=== PATIENT | male | born 1985 | race Caucasian/White ===

== ENCOUNTER 2020-05-03 09:39 | Outpatient (CLI) | payer BC, SELFPAY ==
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
== END 2020-05-03 09:59 ==
PROVIDERS: PCP Nurse Practitioner Family; Referring Provider Nurse Practitioner Family; Visit Provider Student in an Organized Health Care Education/Training Program
DX: M43.8X2 Other specified deforming dorsopathies, cervical region (principal); S12.490S Other displaced fracture of fifth cervical vertebra, sequela; M47.812 Spondylosis without myelopathy or radiculopathy, cervical region; M48.02 Spinal stenosis, cervical region
CPT/HCPCS: 72050

== ENCOUNTER 2020-09-23 13:47 | Outpatient (CLI) | payer BC, SELFPAY ==
--- NOTE | 2020-09-23 13:00 | DI.RAD_ITS ---
Exam(s) XR CLAVICLE RT EXAM: XR CLAVICLE RT CLINICAL HISTORY: eval R clavicle fracture S42.001A. TECHNIQUE: 2D digital imaging was performed. COMPARISON: No exams were available for comparison FINDINGS: There is a displaced comminuted fracture of the midshaft of the right clavicle. AC joint is not dist racted. IMPRESSION: DATA REPOSITORY: RADIATION DOSE DELIVERED:
== END 2020-09-23 14:07 ==
PROVIDERS: PCP Nurse Practitioner Family; Visit Provider Student in an Organized Health Care Education/Training Program
DX: S42.001A Fracture of unspecified part of right clavicle, initial encounter for closed fracture (principal); X58.XXXA Exposure to other specified factors, initial encounter
CPT/HCPCS: 73000

== ENCOUNTER 2020-09-27 03:10 | Outpatient (CLI) | payer BC, SELFPAY ==
[2020-09-27 11:43] LABS: Source Nasal/Nares
[2020-09-27 16:46] LABS: COVID-19 PCR Negative (Negative)
== END 2020-09-27 03:11 | disposition home or self-care (01) ==
LOC: LBO 03:11
PROVIDERS: PCP Nurse Practitioner Family; Visit Provider Student in an Organized Health Care Education/Training Program
DX: Z20.822 Contact with and (suspected) exposure to COVID-19 (principal); Z01.818 Encounter for other preprocedural examination
CPT/HCPCS: 87635

== ENCOUNTER 2020-09-28 08:08 | Day surgery (SDC) | payer BC, SELFPAY ==
[2020-09-28] VITALS (9 sets, daily range): BP systolic 101–134; BP diastolic 53–79; PULSE 52–68; RESP 12–17; TEMP 36.2–36.7; O2SAT 95–98; BMI 24.5
--- NOTE | 2020-09-28 07:36 | PDOC.DSDIS_ITS ---
Discharge Plan Disposition Patient Disposition: HOME Condition: Good Discharge Details Reason For Visit: Right clavicle ORIF Attending Provider: Wilman Park Primary Care Provider: Ghada Man Home Meds and New Rx's Prescriptions: New ibuprofen 600 mg tablet 600 mg PO TID Qty: 90 RF: 0 acetaminophen [Tylenol Extra Strength] 500 mg tablet 500 mg PO Q6H PRNQty: 90 RF: 0 hydrocodone-acetaminophen 5-325 mg tablet 1 tab PO Q6H PRNQty: 5 RF: 0 Continued lorazepam 0.5 mg Tablet 0.5 mg PO PRN PRNRF: 0 loratadine 10 mg Tablet 10 mg PO DAILY PRNRF: 0 Discharge Instructions Additional Instructions: Fracture Fixation Discharge Instructions Activity: You should use the sling as much as possible for the first few days. You may use your hand, finger and bend at the elbow as much as tolerated but avoid trying to lift away from your body or above your shoulders. Avoid doing too much too soon. You may perform light activities with the sling in place. Dressing: dressing will be removed at first postoperative visit. If it falls off before then it is ok. Keep clean and dry. Medications: - You should take Tylenol and Ibuprofen for baseline pain control. - You have been prescribed a stronger pain medication, hydrocodone, for breakthrough pain. - You may apply ice over the wrist, just double bag so it doesn't get wet. Follow-up: 10-14 days Referrals: Wilman Park MD [ [facility] STAFF PHYSICIAN] - Equipment/Supplies: Sling Activity:: Activity as Tolerated Remove Dressings/Wound Care:: Do Not Remove Shower/Bathe:: 72 hours Discharge Orders Discharge Orders: Discharge Order (Routine); Ordered 09/28/20 Ordered By: Delmi Garcia DS: Diagnosis Discharge Diagnosis (1) Right clavicle fracture: Status: Acute
[2020-09-28] MEDS: Lactated Ringers 1,000 ML 80 ML IV (08:40)
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
[2020-09-28] MEDS: ceFAZolin 2 GM/50 ML BAG IVPB (10:41)
[2020-09-28] MEDS: Bupivacaine 0.25% Pres-Free 10 ML VIAL (11:07)
--- NOTE | 2020-09-28 11:20 | W.ANESNERVE ---
Nerve Block Single Injection Procedure Date and Time Date Performed: 09/28/20 Procedure Start: 10:20 Location Where Procedure Performed Procedure Location: PACU Reason Performed: Postoperative Analgesia Requesting Provider: Wilman Park Timeout Performed Timeout Performed: Yes Monitoring Used ECG, Blood Pressure and SpO2 Sterility Sterility: Hand Hygiene, Surgical Cap, Surgical Mask, Sterile Gloves, Sterile Drape/Sheet (sterile ultrasound cover) and Chlorhexidine Sedation Given During Procedure Sedation Given (Indicate Dose Given): Versed IV Dose:: 2mg Patient Mental Status Patient Mental Status: Sedate with meaningful communication Nerve Block 1st Nerve Block: Laterality: Right Block Type: Superficial Cervical Plexus Needle / Catheter Used: 100mm SonoPlex II Local Anesthetic Bolus (Indicate Dose Given): Lidocaine used for local infiltration of skin (1.5 ml 2% from OR 1), Injected in 3-5ml increments after negative blood aspiration, Bupivacaine 0.25% Dose:: 5 ml and Exparel Dose:: 5 ml Additives (Indicate Dose Given): None Ultrasound: Sterile probe cover and gel used Ultrasound Image Saved?: Yes Nerve Stimulator: Not Used Paresthesia: None Post Procedure Pain score (0-10): 0 Procedure Tolerated: No Complications and Patient tolerated well Procedure Outcome: Successful Performed By: edel Other (not listed above): assist needle repositioned by edel holder
--- NOTE | 2020-09-28 12:15 | DI.RAD_ITS ---
Exam(s) XR CLAVICLE RT EXAM: XR CLAVICLE RT CLINICAL HISTORY: ORIF TECHNIQUE: 2D and realtime digital imaging was performed. COMPARISON: No exams were available for comparison FINDINGS: C-arm fluoroscopy was utilized by Dr. Park during open reduction and internal fixation of mid cla vicular fracture. Hard copy show plate and screw fixation in place. IMPRESSION: RADIATION DOSE DELIVERED: Kar=1.1 mGy Total DLP
[2020-09-28] MEDS: fentaNYL 100 MCG/2 ML VIAL IVP (13:15)
[2020-09-28] MEDS: Ondansetron 4 MG/2 ML VIAL IVP (14:26)
--- NOTE | 2020-09-28 14:26 | W.ANESPOSTOP ---
Postoperative Evaluation Date, Time and Location Date Performed: 09/28/20 Time Performed: 14:26 Patient Location: Day Surgery Unit Vital Signs Most Recent Imported Vital Signs: Most Recent Vital Signs Temp Pulse Resp BP Pulse Ox 36.2 C L 52 L 16 108/64 97 09/28/20 13:56 09/28/20 13:56 09/28/20 13:56 09/28/20 13:56 09/28/20 13:56 Pain Score Most Recent Pain Score: Most Recent Pain Score Pain Level 3 09/28/20 13:56 Assessment Mental Status: Awake (Alert & Oriented to Patient Baseline) Airway and Respiratory Function: Patent airway with normal (patient baseline) respiratory exam Cardiovascular Function: Hemodynamically Stable Hydration Status: Adequately Hydrated Nausea & Vomiting: Active Nausea or Vomiting Present Nausea and Vomiting Management: Nausea and vomiting active, being addressed with medication Pain: Pain is tolerable per patient Peripheral Nerve Block: Regional nerve block not resolved at time of post operative discharge
[2020-09-28] MEDS: Droperidol 5 MG/2 ML VIAL 0.625 MG IVP (15:16)
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
== END 2020-09-28 16:25 | disposition home or self-care (01) ==
LOC: SUR 08:09
PROVIDERS: PCP Nurse Practitioner Family; Visit Provider Student in an Organized Health Care Education/Training Program
PROC: (CPT 23515; principal; 2020-09-28 10:15)
DX: S42.021A Displaced fracture of shaft of right clavicle, initial encounter for closed fracture (principal); V19.3XXA Pedal cyclist (driver) (passenger) injured in unspecified nontraffic accident, initial encounter
CPT/HCPCS: 23515; 76000; 76942; 73000; J0690; J1790; J1885; J2250; J2405; J3010

== ENCOUNTER 2020-10-11 14:57 | Outpatient (CLI) | payer BC, SELFPAY ==
--- NOTE | 2020-10-11 13:30 | DI.RAD_ITS ---
Exam(s) XR CLAVICLE RT EXAM: XR CLAVICLE RT CLINICAL HISTORY: f/u ORIF R clavicle. TECHNIQUE: 2D digital imaging was performed. COMPARISON: CR XR CLAVICLE RT from 09/23/2020 FINDINGS: There has been interval placement of a dorsal fusion plate across the comminuted midshaft fracture si te in the right clavicle. Are satisfactory position alignment of the fracture fragments. No hardwar e loosening. No radiographic evidence of osteomyelitis. Ipsilateral AC joint appears unremarkable. IMPRESSION: DATA REPOSITORY: RADIATION DOSE DELIVERED:
== END 2020-10-11 14:58 | disposition home or self-care (01) ==
LOC: DIORS 14:57
PROVIDERS: PCP Nurse Practitioner Family; Referring Provider Nurse Practitioner Family; Visit Provider Student in an Organized Health Care Education/Training Program
DX: S42.021D Displaced fracture of shaft of right clavicle, subsequent encounter for fracture with routine healing (principal); X58.XXXD Exposure to other specified factors, subsequent encounter
CPT/HCPCS: 73000

== ENCOUNTER 2020-11-08 13:51 | Outpatient (CLI) | payer BC, SELFPAY ==
--- NOTE | 2020-11-08 08:00 | DI.RAD_ITS ---
Exam(s) XR CLAVICLE RT EXAM: XR CLAVICLE RT INDICATION: right clavicle fracture. COMPARISON: No exams were available for comparison TECHNIQUE: 2D digital imaging was performed. FINDINGS: A fixation plate is again noted along the clavicle for fracture fixation. There is continued healing . No change in alignment. DATA REPOSITORY: RADIATION DOSE DELIVERED:
== END 2020-11-08 13:52 | disposition home or self-care (01) ==
LOC: DIORS 13:51
PROVIDERS: PCP Nurse Practitioner Family; Referring Provider Nurse Practitioner Family; Visit Provider Physician Assistant
DX: S42.001D Fracture of unspecified part of right clavicle, subsequent encounter for fracture with routine healing (principal); X58.XXXD Exposure to other specified factors, subsequent encounter
CPT/HCPCS: 73000

== ENCOUNTER 2020-12-20 09:36 | Outpatient (CLI) | payer BC, SELFPAY ==
--- NOTE | 2020-12-20 08:00 | DI.RAD_ITS ---
Exam(s) XR CLAVICLE RT EXAM: XR CLAVICLE RT CLINICAL HISTORY: right clavicle fracture. TECHNIQUE: 2D digital imaging was performed. COMPARISON: CR XR CLAVICLE RT from 11/08/2020 FINDINGS: Again noted is a dorsal fixation plate across the mid shaft level clavicular fracture site which appe ars mostly healed. No hardware fracture. No loosening. No radiographic evidence of osteomyelitis. AC joint is not distracted. IMPRESSION: DATA REPOSITORY: RADIATION DOSE DELIVERED:
== END 2020-12-20 09:37 | disposition home or self-care (01) ==
LOC: DIORS 09:37
PROVIDERS: PCP Nurse Practitioner Family; Referring Provider Nurse Practitioner Family; Visit Provider Physician Assistant
DX: S42.021D Displaced fracture of shaft of right clavicle, subsequent encounter for fracture with routine healing (principal); X58.XXXD Exposure to other specified factors, subsequent encounter
CPT/HCPCS: 73000

== ENCOUNTER 2021-06-02 09:43 | Outpatient (CLI) | payer BC, SELFPAY ==
--- NOTE | 2021-06-02 08:30 | DI.RAD_ITS ---
Exam(s) XR CLAVICLE RT EXAM: XR CLAVICLE RT CLINICAL HISTORY: eval R clavicle ORIF TECHNIQUE: 2D digital imaging was performed. Two views. COMPARISON: CR XR CLAVICLE RT from 12/20/2020 FINDINGS: There has been no change in fracture or hardware alignment. Continued healing at clavicle fracture. No new abnormalities. DATA REPOSITORY: RADIATION DOSE DELIVERED:
--- NOTE | 2021-06-02 08:30 | DI.RAD_ITS ---
Exam(s) XR ACROMIO CLAVICULAR JOINTS EXAM: XR ACROMIO CLAVICULAR JOINTS INDICATION: eval R AC pain. COMPARISON: CR XR CLAVICLE RT from 12/20/2020 CR XR CLAVICLE RT from 06/02/2021 TECHNIQUE: 2D digital imaging was performed. Single AP view with weights. Both AC joints on the si ngle image. FINDINGS: A fixation plate is again noted through the right clavicle. There has been no change hardware alignm ent. No new lucencies are seen. There is no widening of the AC joints with weights. DATA REPOSITORY: RADIATION DOSE DELIVERED:
== END 2021-06-02 09:44 | disposition home or self-care (01) ==
LOC: DIORS 09:43
PROVIDERS: PCP Nurse Practitioner Family; Referring Provider Nurse Practitioner Family; Visit Provider Student in an Organized Health Care Education/Training Program
DX: S42.021D Displaced fracture of shaft of right clavicle, subsequent encounter for fracture with routine healing (principal); M25.511 Pain in right shoulder; X58.XXXD Exposure to other specified factors, subsequent encounter
CPT/HCPCS: 73000; 73050

== ENCOUNTER 2023-05-09 15:50 | Outpatient (CLI) | payer BC, SELFPAY ==
--- NOTE | 2023-05-09 15:42 | DI.RAD_ITS ---
Exam(s) XR SHOULDER LT COMPLETE 2+V EXAM: XR SHOULDER LT COMPLETE 2+V CLINICAL HISTORY: LEFT SHOULDER PAIN. TECHNIQUE: 2D digital imaging was performed. Two views. COMPARISON: CR XR ACROMIO CLAVICULAR JOINTS from 06/02/2021 FINDINGS: BONES: No acute fracture is present. No bony destructive lesion is seen. JOINTS: No dislocation present. No significant degenerative changes. SOFT TISSUE: Normal. IMPRESSION: Unremarkable radiographs of the left shoulder. DATA REPOSITORY: RADIATION DOSE DELIVERED:
== END 2023-05-09 15:51 | disposition home or self-care (01) ==
LOC: DIORS 15:50
PROVIDERS: PCP Nurse Practitioner Family; Visit Provider Student in an Organized Health Care Education/Training Program
DX: M25.512 Pain in left shoulder (principal)
CPT/HCPCS: 73030

== ENCOUNTER → 2023-05-24 01:01 | Outpatient (CLI) | payer BC, SELFPAY ==
--- NOTE | 2023-05-24 06:15 | DI.MRI_ITS ---
Exam(s) MR UPPER JOINT LT WO EXAM: MR UPPER JOINT LT WO CLINICAL HISTORY: L SHOULDER PAIN,labral tear,s43.439a. TECHNIQUE: Multiplanar multisequence MRI was performed. COMPARISON: CR XR SHOULDER LT COMPLETE 2+V from 05/09/2023 FINDINGS: BONES: There is mild marrow edema seen in the anterior humeral head. This is nonspecific but may ref lect contusion in the appropriate clinical setting. No fracture is identified. JOINTS: There is thinning of the articular cartilage at the anterior inferior glenoid with mild subch ondral edema. There may be mild degenerative changes seen at the acromioclavicular joint. TENDONS: Supraspinatus: There is tendinosis of the supraspinatus but no evidence of a tear. Infraspinatus: Unremarkable. Subscapularis: Unremarkable. Teres [place]: Unremarkable. Biceps and [place]: Unremarkable. MUSCLES: Unremarkable. The muscles show normal signal and size. GLENOID LABRUM: There is mild heterogeneous signal and irregularity of the anterior inferior labrum. There is also hyperintense signal seen undercutting the posterior inferior labrum suspicious for tea r. SOFT TISSUES: Unremarkable. LIGAMENTS: Unremarkable. OTHER: Subacromial and subdeltoid bursae are unremarkable. IMPRESSION: 1. Heterogeneous signal of the anterior inferior labrum with hyperintense signal seen undercutting th e posterior inferior labrum suspicious for tear and degeneration. 2. Tendinosis of the supraspinatus tendon. No evidence of a rotator cuff tear. 3. Marrow edema seen in the anterior head of the humerus which may represent a contusion in the appro priate clinical setting. No evidence of a fracture. DATA REPOSITORY:
== END ==
PROVIDERS: PCP Nurse Practitioner Family; Visit Provider Student in an Organized Health Care Education/Training Program
DX: S43.439A Superior glenoid labrum lesion of unspecified shoulder, initial encounter (principal); X58.XXXA Exposure to other specified factors, initial encounter
CPT/HCPCS: 73221